=== PATIENT | female | born 1955 | race Caucasian/White ===

== ENCOUNTER 2017-04-15 15:55 | Emergency (ER) | payer OTHER, SELFPAY ==
[2017-04-15 16:33] LABS: #Basophils 0.1 thou/uL (0.0-0.2); #Eosinphils 0.3 thou/uL (0.0-0.7); #Lymphocytes 4.2 thou/uL (1.20-3.40); #Monocytes 0.8 thou/uL (0.11-0.59); #Neutrophils 7.9 thou/uL (1.40-6.50); %Basophils 0.7 % (0.0-1.0); %Lymphocytes 31.8 % (21.0-51.0); Hematocrit 41.4 % (36.0-47.0); Red Blood Cell (RBC) Count 4.84 mill/uL (4.20-5.40); White Blood Cell (WBC) Count 13.3 thou/uL (4.8-10.8)
[2017-04-15 16:53] LABS: ALT (SGPT) 11 U/L (8-55); AST (SGOT) 15 U/L (5-34); Alkaline Phosphatase 90 U/L (40-150); Anion Gap 15 mmol/L (10-20); BUN (Urea Nitrogen) 10 mg/dL (9.8-20.1); Bilirubin, Total 0.7 mg/dL (0.2-1.2); Calc. Creatinine Clearance 0 mL/min (70-130); Calcium 9.6 mg/dL (7.8-10.44); Carbon Dioxide 21 mmol/L (22-29); Chloride 100 mmol/L (98-107); Estimated GFR-MDRD 76; Globulin 4.1 g/dL (2.4-3.5)
[2017-04-15 16:56] LABS: Troponin I Less than 0.010 ng/mL (< 0.028)
--- NOTE | 2017-04-15 19:04 | RAD ---
AP CHEST: Indication: Throat pain, shortness of breath, dyspnea. Comparison: 02-05-17 FINDINGS: Chronic lung changes are similar. No definite confluent airspace opacity or pleural effusion is note d. Heart size and pulmonary vasculature are within normal limits. No acute osseous abnormality is de monstrated. IMPRESSION: Stable chronic lung changes consisting of interstitial and airspace opacity seen within the left john g and right lung base. Likely related to underlying fibrotic change. No definite confluent airspace opacity seen to suggest presence of pneumonia. POS: [facility]
[2017-04-15 19:50] LABS: Troponin I Less than 0.010 ng/mL (< 0.028)
--- NOTE | 2017-04-20 18:24 | EKG ---
Test Reason : Blood Pressure : / mmHG Vent. Rate : 096 BPM Atrial Rate : 096 BPM P-R Int : 144 ms QRS Dur : 072 ms QT Int : 356 ms P-R-T Axes : 040 008 045 degrees QTc Int : 449 ms Normal sinus rhythm Possible Inferior infarct , age undetermined Abnormal ECG Confirmed by ANNIKA Mi, CARIDAD Lemus ([id number]), health editor ANDERSON MACIAS ([id number]) on 04/20/2017 6:24:13 PM Referred By: Confirmed By:CARIDAD ROBLERO M.D.
--- NOTE | 2017-04-20 18:25 | EKG ---
Test Reason : Blood Pressure : / mmHG Vent. Rate : 081 BPM Atrial Rate : 081 BPM P-R Int : 154 ms QRS Dur : 080 ms QT Int : 380 ms P-R-T Axes : 039 007 040 degrees QTc Int : 441 ms Normal sinus rhythm Possible Inferior infarct , age undetermined Abnormal ECG Confirmed by ANNIKA Mi, CARIDAD Lemus ([id number]), editorial specialist ANDERSON MACIAS ([id number]) on 04/20/2017 6:24:40 PM Referred By: Confirmed By:CARIDAD ROBLERO M.D.
== END 2017-04-15 20:15 | disposition home or self-care (01) ==
LOC: ERS 15:55
DX: J02.9 Acute pharyngitis, unspecified (principal); J44.9 Chronic obstructive pulmonary disease, unspecified; E11.40 Type 2 diabetes mellitus with diabetic neuropathy, unspecified; E78.5 Hyperlipidemia, unspecified; M19.90 Unspecified osteoarthritis, unspecified site; E66.9 Obesity, unspecified; F41.9 Anxiety disorder, unspecified; F32.9 Major depressive disorder, single episode, unspecified; Z86.73 Personal history of transient ischemic attack (TIA), and cerebral infarction without residual deficits; Z87.891 Personal history of nicotine dependence; Z79.82 Long term (current) use of aspirin; Z79.899 Other long term (current) drug therapy
CPT/HCPCS: 36415; 71010; 80053; 82553; 83880; 84484; 85025; 87081; 87430; 93005

== ENCOUNTER 2017-07-28 14:25 | Emergency (ER) | payer SELFPAY ==
[2017-07-28 15:21] LABS: #Basophils 0.1 thou/uL (0.0-0.2); #Eosinphils 0.2 thou/uL (0.0-0.7); #Lymphocytes 3.5 thou/uL (1.20-3.40); #Monocytes 0.7 thou/uL (0.11-0.59); #Neutrophils 7.9 thou/uL (1.40-6.50); %Basophils 0.6 % (0.0-1.0); %Eosinophils 1.8 % (0.0-10.0); %Monocytes 5.8 % (0.0-10.0); %Neutrophils 63.8 % (42.0-75.0); Hemoglobin 13.2 g/dL (12.0-16.0); Mean Corpuscular HGB CONC 32.7 g/dL (32.0-36.0); Mean Corpuscular Hemoglobin 27.8 pg (27.0-31.0); Mean Corpuscular Volume 84.8 fl (81.0-99.0); Mean Platelet Volume 8.7 fL (7.4-10.4); Platelet Count 258 thou/uL (130-400); RBC Distribution Width 13.6 % (11.5-14.5); Red Blood Cell (RBC) Count 4.74 mill/uL (4.20-5.40); White Blood Cell (WBC) Count 12.4 thou/uL (4.8-10.8)
[2017-07-28 15:43] LABS: ALT (SGPT) 10 U/L (8-55); AST (SGOT) 12 U/L (5-34); Albumin 3.7 g/dL (3.4-4.8); Alkaline Phosphatase 83 U/L (40-150); Anion Gap 18 mmol/L (10-20); BUN (Urea Nitrogen) 8 mg/dL (9.8-20.1); Bilirubin, Total 0.8 mg/dL (0.2-1.2); Calc. Creatinine Clearance 0 mL/min (70-130); Calcium 9.5 mg/dL (7.8-10.44); Carbon Dioxide 18 mmol/L (23-31); Chloride 101 mmol/L (98-107); Estimated GFR-MDRD 73; Globulin 3.7 g/dL (2.4-3.5); Glucose 294 mg/dL (80-115); Potassium 4.4 mmol/L (3.5-5.1); Protein, Total 7.4 g/dL (6.0-8.3); Sodium 133 mmol/L (136-145)
[2017-07-28 15:46] LABS: Troponin I Less than 0.010 ng/mL (< 0.028)
--- NOTE | 2017-07-28 16:02 | RAD ---
PORTABLE AP CHEST RADIOGRAPH: Date: 07-28-17 History: Cough. High blood sugar. Chest congestion. COPD. Comparison: 04-15-17 FINDINGS: Cardiac silhouette is magnified by projection. Again noted are increased interstitial densities bilat erally, greater on the left, in a similar distribution to the prior study, likely related to chronic interstitial fibrotic lung changes. There is no focal consolidation or pleural fluid seen. Stable skye vation of the right hemidiaphragm is present. No other interval change. IMPRESSION: 1. No acute cardiopulmonary process. 2. Chronic interstitial lung changes. POS: [facility]
[2017-07-28 17:36] LABS: Bilirubin Negative (Negative); Blood, Urine Trace (Negative); Clarity CLOUDY (Clear); Glucose, Urine (Dipstick) Negative (Negative); Leukocyte Moderate (Negative); Nitrite Positive (Negative); Protein, Urine (Dipstick) Negative (Neg-Trace)
[2017-07-28 17:39] LABS: Bacteria/HPF 4+ HPF (None Seen); Hyaline Casts/LPF 0-3 HYALINE CAST LPF (0-3 Hyaline); Pathc Cast-AUWi Flag 0.67 (0-2.49); RBC/HPF 21-50 HPF (0-3); WBC/HPF 21-50 HPF (0-3)
== END 2017-07-28 18:28 | disposition home or self-care (01) ==
LOC: ERS 14:25
DX: E11.65 Type 2 diabetes mellitus with hyperglycemia (principal); J06.9 Acute upper respiratory infection, unspecified; N39.0 Urinary tract infection, site not specified; F41.9 Anxiety disorder, unspecified; F32.9 Major depressive disorder, single episode, unspecified; Z87.891 Personal history of nicotine dependence; E66.9 Obesity, unspecified; J44.9 Chronic obstructive pulmonary disease, unspecified; Z86.73 Personal history of transient ischemic attack (TIA), and cerebral infarction without residual deficits; Z79.899 Other long term (current) drug therapy; Z79.82 Long term (current) use of aspirin
CPT/HCPCS: 36415; 36416; 71045; 80053; 81003; 81015; 82553; 84484; 85025; 93005; 96361; 96374; J0696

== ENCOUNTER 2017-08-14 23:13 | Emergency (ER) | payer SELFPAY ==
--- NOTE | 2017-08-14 23:52 | RAD ---
CHEST ONE VIEW 08/14/17 HISTORY: Dyspnea. COMPARISON: 07/28/17. FINDINGS: The cardiac silhouette is magnified by projection. Pulmonary vasculature is slightly more engorged wi th increasing widespread reticulonodular interstitial prominence. Mediastinum is midline with aortic calcification. No lobar consolidation or evidence of pneumothorax. IMPRESSION: 1. Slight interval increase in pulmonary vascular congestion. Superimposed chronic interstitial lung disease. POS: [facility]
[2017-08-15] MEDS ORDERED: Furosemide 40 MG/4 ML VIAL ONE (00:20)
[2017-08-15 00:35] LABS: ALT (SGPT) 11 U/L (8-55); AST (SGOT) 18 U/L (5-34); Albumin 3.6 g/dL (3.4-4.8); Alkaline Phosphatase 80 U/L (40-150); Anion Gap 14 mmol/L (10-20); BUN (Urea Nitrogen) 10 mg/dL (9.8-20.1); Bilirubin, Total 0.5 mg/dL (0.2-1.2); Calc. Creatinine Clearance 0 mL/min (70-130); Calcium 9.7 mg/dL (7.8-10.44); Carbon Dioxide 23 mmol/L (23-31); Chloride 101 mmol/L (98-107); Estimated GFR-MDRD 68; Globulin 3.7 g/dL (2.4-3.5); Glucose 276 mg/dL (80-115); Protein, Total 7.3 g/dL (6.0-8.3); Sodium 134 mmol/L (136-145)
[2017-08-15 00:55] LABS: #Basophils 0.1 thou/uL (0.0-0.2); #Eosinphils 0.3 thou/uL (0.0-0.7); #Lymphocytes 3.8 thou/uL (1.20-3.40); #Monocytes 0.7 thou/uL (0.11-0.59); #Neutrophils 7.6 thou/uL (1.40-6.50); %Basophils 0.7 % (0.0-1.0); %Eosinophils 2.2 % (0.0-10.0); %Lymphocytes 30.6 % (21.0-51.0); %Monocytes 5.9 % (0.0-10.0); %Neutrophils 60.6 % (42.0-75.0); Hemoglobin 12.3 g/dL (12.0-16.0); Mean Corpuscular HGB CONC 32.5 g/dL (32.0-36.0); Mean Corpuscular Hemoglobin 27.4 pg (27.0-31.0); Mean Corpuscular Volume 84.5 fl (81.0-99.0); Platelet Count 260 thou/uL (130-400); RBC Distribution Width 13.9 % (11.5-14.5); White Blood Cell (WBC) Count 12.5 thou/uL (4.8-10.8)
[2017-08-15 00:56] LABS: CKMB 0.8 ng/mL (0-6.6); Troponin I Less than 0.010 ng/mL (< 0.028)
[2017-08-15 01:00] LABS: Bilirubin Negative (Negative); Blood, Urine Negative (Negative); Clarity CLEAR (Clear); Glucose, Urine (Dipstick) 250 mg/dL (Negative); Leukocyte Small (Negative); Nitrite Negative (Negative); Protein, Urine (Dipstick) Negative (Neg-Trace); Specific Gravity, Urine 1.016 (1.002-1.036); Urobilinogen 0.2 mg/dL (0.2-1.0); pH, Urine 6.5 (5.0-9.0)
[2017-08-15 01:04] LABS: Bacteria/HPF Rare-Few HPF (None Seen); Hyaline Casts/LPF 0-3 HYALINE CAST LPF (0-3 Hyaline); Pathc Cast-AUWi Flag 0.27 (0-2.49); RBC/HPF 0-3 HPF (0-3); WBC/HPF 0-3 HPF (0-3)
[2017-08-15] MEDS ORDERED: Acetaminophen 325 MG TAB ONE (01:35)
--- NOTE | 2017-08-17 13:14 | EKG ---
Test Reason : Blood Pressure : / mmHG Vent. Rate : 100 BPM Atrial Rate : 100 BPM P-R Int : 142 ms QRS Dur : 074 ms QT Int : 344 ms P-R-T Axes : 025 014 034 degrees QTc Int : 443 ms Normal sinus rhythm Inferior infarct , age undetermined Cannot rule out Anterior infarct , age undetermined Abnormal ECG Confirmed by REAL FLYNN, HAYDEN ([id number]), development editor ELIEZER DILL ([id number]) on 08/17/2017 1:14:30 PM Referred By: Confirmed By:HAYDEN NOBLE MD
== END 2017-08-15 02:45 | disposition home or self-care (01) ==
LOC: ERS 23:13
DX: E87.70 Fluid overload, unspecified (principal); E78.5 Hyperlipidemia, unspecified; E11.40 Type 2 diabetes mellitus with diabetic neuropathy, unspecified; F41.9 Anxiety disorder, unspecified; E66.9 Obesity, unspecified; M19.90 Unspecified osteoarthritis, unspecified site; F32.9 Major depressive disorder, single episode, unspecified; J44.9 Chronic obstructive pulmonary disease, unspecified; Z86.73 Personal history of transient ischemic attack (TIA), and cerebral infarction without residual deficits; Z79.82 Long term (current) use of aspirin; Z79.899 Other long term (current) drug therapy
CPT/HCPCS: 36416; 71045; 80053; 81003; 81015; 82550; 82553; 83880; 84484; 85025; 93005; 96374; J1940